=== PATIENT | male | born 1980 | race Caucasian/White ===

== ENCOUNTER 2023-07-15 19:45 | Inpatient (IN) | payer OTHER, SELFPAY ==
[~2023-07-15] VITALS: Ht 177.8 cm; Wt 100.0 kg
[2023-07-15 21:03] LABS: HEMATOCRIT 51.6 % (42.0-52.0); HEMOGLOBIN 17.2 g/dl (13.5-17.5); MEAN CORPUSCULAR HEMOGLOBIN 28.6 pg (27.0-33.0); MEAN CORPUSCULAR HGB CONC 33.3 g/dl (32.0-36.5); MEAN CORPUSCULAR VOLUME 85.9 fl (80.0-96.0); RED BLOOD COUNT 6.01 10^6/uL (4.30-6.10); WHITE BLOOD COUNT 14.9 10^3/uL (4.0-10.0)
[2023-07-15 21:26] LABS: ETHYL ALCOHOL (ETHANOL) 0.003 % (0.000-0.010)
[2023-07-15 21:27] LABS: SALICYLATE LEVEL < 3.0 MG/DL (<30)
[2023-07-15 21:28] LABS: ALBUMIN 3.8 G/DL (3.2-5.2); ALKALINE PHOSPHATASE 62 U/L (46-116); ALT/SGPT 27 U/L (7.0-40); AST/SGOT 15 U/L (<34); BILIRUBIN,DIRECT < 0.1 MG/DL (<0.4); BILIRUBIN,TOTAL 0.2 MG/DL (0.3-1.2); BLOOD UREA NITROGEN 9 MG/DL (9-23); CARBON DIOXIDE LEVEL 28 MMOL/L (20-31); CHLORIDE LEVEL 107 MMOL/L (98-107); CREATININE FOR GFR 0.76 MG/DL (0.70-1.30); GLOMERULAR FILTRATION RATE > 60.0 (>60); GLUCOSE, FASTING 82 MG/DL (60-100); POTASSIUM SERUM 4.2 MMOL/L (3.5-5.1); SODIUM LEVEL 140 MMOL/L (136-145); TOTAL PROTEIN 7.2 G/DL (5.7-8.2)
[2023-07-15 21:30] LABS: THYROID STIMULATING HORMONE 1.274 uIU/ML (0.55-4.78)
[2023-07-15 21:50] LABS: PLATELET COUNT, AUTOMATED 75 10^3/uL (150-450)
[2023-07-15 23:04] LABS: BARBITURATES URINE NEGATIVE (NEGATIVE); BENZODIAZEPINES URINE NEGATIVE (NEGATIVE); CANNABINOIDS URINE NEGATIVE (NEGATIVE); COCAINE METABOLITE URINE NEGATIVE (NEGATIVE); METHADONE URINE NEGATIVE (NEGATIVE); OPIATES URINE NEGATIVE (NEGATIVE); PHENCYCLIDINE URINE NEGATIVE (NEGATIVE)
[2023-07-15 23:09] LABS: AMPHETAMINES LEVEL URINE POSITIVE (NEGATIVE)
[2023-07-16] MEDS ORDERED: MED REC IN PROGRESS XX SCH (09:10)
[2023-07-16] MEDS ORDERED: HOME MED LIST COMPLETE! XX SCH (10:15)
[2023-07-16] MEDS ORDERED: MAALOX 30 ML SUSP *UDC PO PRN (10:25)
[2023-07-16] MEDS ORDERED: MOM 30ML SUSPENSION UDC PO PRN (10:25)
[2023-07-16] MEDS: diphenhydrAMINE 25MG CAP PO PRN ×2 (13:14→22:01)
[2023-07-16] MEDS: traZODone 50 MG TAB PO PRN (22:01)
[2023-07-16] MEDS ORDERED: LORazepam 1 MG TAB PO ONE (22:30)
[2023-07-17] MEDS: OLANZapine 5 MG TAB PO PRN (11:44)
[2023-07-17] MEDS: diphenhydrAMINE 25MG CAP PO PRN (11:44)
[2023-07-17 16:47] VITALS: BP 129/65; TEMP 98; O2SAT 100
[2023-07-17] MEDS: traZODone 50 MG TAB PO PRN (23:21)
[2023-07-17] MEDS: IBUPROFEN 400MG TAB PO PRN (23:22)
[2023-07-18 05:50] VITALS: BP 132/68; TEMP 97.5
[2023-07-18 07:04] LABS: CHOLESTEROL RISK RATIO 5.57 (<5); HDL CHOLESTEROL 34.8 MG/DL (>40); LDL CHOLESTEROL 128.8 MG/DL (<100); NON-HDL-C 159.2 MG/DL
[2023-07-18] MEDS: VENLAFAXINE **XR** 37.5 MG CAPSULE PO SCH (11:33)
[2023-07-18] MEDS: NICOTINE 21MG/24HR 1 EA TRANSDERMAL TD PRN (15:40)
[2023-07-18 16:02] VITALS: BP 138/76; TEMP 98.9; O2SAT 96
[2023-07-18] MEDS: traZODone 50 MG TAB PO PRN (22:41)
[2023-07-19 06:17] VITALS: BP 119/69; TEMP 97.9
[2023-07-19] MEDS: VENLAFAXINE **XR** 37.5 MG CAPSULE PO SCH (11:52)
[2023-07-19 16:28] VITALS: BP 138/82; TEMP 98.4; O2SAT 97
[2023-07-19] MEDS: NICOTINE 21MG/24HR 1 EA TRANSDERMAL TD PRN (17:20)
[2023-07-19] MEDS: traZODone 50 MG TAB PO PRN (20:42)
[2023-07-19] MEDS: diphenhydrAMINE 25MG CAP PO PRN (20:42)
[2023-07-19] MEDS: OLANZapine 2.5MG TABLET PO SCH (20:42)
[2023-07-20 06:19] VITALS: BP 144/73; TEMP 97.5; O2SAT 96
[2023-07-20 06:54] LABS: CHOLESTEROL RISK RATIO 5.87 (<5); HDL CHOLESTEROL 38.8 MG/DL (>40); LDL CHOLESTEROL 130.2 MG/DL (<100); NON-HDL-C 189.2 MG/DL
[2023-07-20] MEDS: VENLAFAXINE **XR** 37.5 MG CAPSULE PO SCH (08:36)
[2023-07-20 16:19] VITALS: BP 140/80; TEMP 98.8; O2SAT 96
[2023-07-20] MEDS: NICOTINE 21MG/24HR 1 EA TRANSDERMAL TD PRN (17:41)
[2023-07-20] MEDS: traZODone 50 MG TAB PO PRN (20:36)
[2023-07-20] MEDS: OLANZapine 2.5MG TABLET PO SCH (20:36)
[2023-07-21 06:15] VITALS: BP 144/82; TEMP 97.5; O2SAT 96
[2023-07-21] MEDS: VENLAFAXINE **XR** 37.5 MG CAPSULE PO SCH (09:29)
[2023-07-21 15:52] VITALS: BP 143/72; TEMP 97.8; O2SAT 97
[2023-07-21] MEDS: NICOTINE 21MG/24HR 1 EA TRANSDERMAL TD PRN (17:54)
[2023-07-21] MEDS: OLANZapine 2.5MG TABLET PO SCH (21:07)
[2023-07-21] MEDS: diphenhydrAMINE 25MG CAP PO PRN (21:07)
[2023-07-21] MEDS: traZODone 50 MG TAB PO PRN (21:08)
[2023-07-21] MEDS: OLANZapine 5 MG TAB PO PRN (21:45)
[2023-07-21] MEDS: IBUPROFEN 400MG TAB PO PRN (21:46)
[2023-07-21] MEDS: ACETAMINOPHEN TAB 650MG DOSE (2X325MG) PO PRN (21:46)
[2023-07-22 06:12] VITALS: BP 121/65; TEMP 97.5; O2SAT 99
[2023-07-22] MEDS: NICOTINE 21MG/24HR 1 EA TRANSDERMAL TD PRN (09:03)
[2023-07-22] MEDS: VENLAFAXINE **XR** 75MG CAPSULE PO SCH (09:03)
[2023-07-22 17:17] VITALS: BP 144/84; TEMP 97.2
[2023-07-22] MEDS: OLANZapine 2.5MG TABLET PO SCH (20:32)
[2023-07-22] MEDS: traZODone 50 MG TAB PO PRN (20:32)
[2023-07-23] MEDS: diphenhydrAMINE 25MG CAP PO PRN (00:18)
[2023-07-23] MEDS: ACETAMINOPHEN TAB 650MG DOSE (2X325MG) PO PRN (00:19)
[2023-07-23] MEDS: VENLAFAXINE **XR** 75MG CAPSULE PO SCH (09:35)
[2023-07-23] MEDS ORDERED: NICO21PAT TD (10:54)
[2023-07-23] MEDS ORDERED: VENL75CA47 PO (10:54)
[2023-07-23] MEDS ORDERED: TRAZ-252 PO (10:54)
[2023-07-23] MEDS ORDERED: OLAN1TAB16 PO (10:54)
[2023-07-23] MEDS ORDERED: OLAN2.5T25 PO (10:54)
== END 2023-07-23 13:08 | disposition home or self-care (01) | DRG 754 ==
LOC: M ED 19:45 → M ED INP 07-16 10:22 → M PSY 07-16 14:31
PROVIDERS: ADMIT Student in an Organized Health Care Education/Training Program; ATTEND Student in an Organized Health Care Education/Training Program
DX: F32.A Depression, unspecified (principal); D69.6 Thrombocytopenia, unspecified; R45.851 Suicidal ideations; F15.90 Other stimulant use, unspecified, uncomplicated; Z91.013 Allergy to seafood; Z91.041 Radiographic dye allergy status; F17.200 Nicotine dependence, unspecified, uncomplicated; Z59.00 Homelessness unspecified